=== PATIENT | female | born 2000 | race African-American/Black ===

== ENCOUNTER 2019-03-25 14:43 | Emergency (ER) | payer OTHER ==
[2019-03-25 15:08] VITALS: BP 126/72; PULSE 100; TEMP 98.4; BMI 32.3
--- NOTE | 2019-03-25 15:49 | PDOC ---
History of Present Illness <ChinoAamir Tinsley - Last Filed: 03/25/19 16:22> - History of Present Illness Initial Comments: 03/25/19 15:49 HPI: 18 y/o F with no pmh presenting with 4 days of sore throat and rhinorrhea that has worsened over the past 2 days to include productive cough. She also reports some mild dyspnea but it does not impair her daily routine. She denies fever, chest pain, sick contacts, abd pain, n/v, recent travel. [place] in a dorm on campus. Tried nyquil and vaporub with minimal improvement. PMHx: as noted above ROS: as noted SHx: Denies tobacco use; no alcohol use; no rec drugs Allergies: NKDA ROS: GENERAL/CONSTITUTIONAL: No fever or chills. No weakness. HEAD, EYES, EARS, NOSE AND THROAT: No change in vision. No ear pain or discharge. +sore throat. CARDIOVASCULAR: No chest pain RESPIRATORY: No cough, wheezing, or hemoptysis. GASTROINTESTINAL: No nausea, vomiting, diarrhea or constipation. GENITOURINARY: No dysuria, frequency, or change in urination. MUSCULOSKELETAL: No joint or muscle swelling or pain. No neck or back pain. SKIN: No rash NEUROLOGIC: No headache, vertigo, loss of consciousness, or change in strength/ sensation. ENDOCRINE: No increased thirst. No abnormal weight change HEMATOLOGIC/LYMPHATIC: No anemia, easy bleeding, or history of blood clots. ALLERGIC/IMMUNOLOGIC: No hives or skin allergy. PE: GENERAL: Awake, alert, and fully oriented, no acute distress HEAD: No signs of trauma, normocephalic, atraumatic EYES: EOMI, sclera anicteric, conjunctiva clear ENT: Auricles normal inspection, TMs clear, hearing grossly normal, nares patent , posterior oropharynx erythema but no exudates or lesions, nontender sinuses. Moist mucosa NECK: Normal ROM, no lymphadenopathy LUNGS: No increased work of breathing, symmetrical chest rise, clear to auscultation bilaterally, no wheezes, crackles or rhonchi HEART: tachycardic, and regular rhythm, normal S1 and S2, no murmurs, peripheral pulses 2+ and equal bilaterally. ABDOMEN: Soft, nondistended, nontender, normoactive bowel sounds. No guarding, no rebound. No masses. No CVAT EXTREMITIES: Normal inspection, Normal range of motion, no edema. No clubbing or cyanosis. NEUROLOGICAL: Cranial nerves II through XII grossly intact. Normal speech, normal gait, no focal sensorimotor deficits SKIN: Warm, Dry, normal turgor, no rashes or lesions noted <Mendel Rivas - Last Filed: 03/25/19 17:05> - General Chief Complaint: Cold Symptoms Stated Complaint: SORE THROAT Time Seen by Provider: 03/25/19 15:01 Past History <Aamir Hugo - Last Filed: 03/25/19 16:22> - Past Medical History COPD: No - Immunization History Immunization Up to Date: Yes - Psycho Social/Smoking Cessation Hx Smoking History: Never smoked Hx Alcohol Use: No Drug/Substance Use Hx: No <Mendel Rivas - Last Filed: 03/25/19 17:05> - Past Medical History Allergies/Adverse Reactions: Allergies Allergy/AdvReac Type Severity Reaction Status Date / Time No Known Allergies Allergy Verified 03/25/19 15:01 Home Medications: Ambulatory Orders NK [No Known Home Medication] 03/25/19 *Physical Exam - Vital Signs Last Vital Signs Temp Pulse Resp BP Pulse Ox 98.4 F 100 H 15 126/72 99 03/25/19 14:53 03/25/19 14:53 03/25/19 14:53 03/25/19 14:53 03/25/19 14:53 <Aamir Hugo - Last Filed: 03/25/19 16:22> - Vital Signs Last Vital Signs Temp Pulse Resp BP Pulse Ox 98.4 F 100 H 15 126/72 99 03/25/19 14:53 03/25/19 14:53 03/25/19 14:53 03/25/19 14:53 03/25/19 14:53 <Mendel Rivas - Last Filed: 03/25/19 17:05> Medical Decision Making - Medical Decision Making 03/25/19 17:03 18 y/o F with no pmh presenting with 4 days of sore throat and rhinorrhea that has worsened over the past 2 days to include productive cough. mild tachycardia , AF. PE with erythematous posterior oropharynx without exudates -rapid strep and throat culture 03/25/19 17:03 negative strep likely viral pharyngitis will DC home with conservative management <Mendel Rivas - Last Filed: 03/25/19 17:05> Discharge - Discharge Information Problems reviewed: Yes - Admission No <Aamir Hugo - Last Filed: 03/25/19 16:22> - Discharge Information Problems reviewed: Yes <Mendel Rivas - Last Filed: 03/25/19 17:05> - Discharge Information Clinical Impression/Diagnosis: Viral upper respiratory infection Condition: Good Disposition: HOME - Patient Discharge Instructions Patient Printed Discharge Instructions: DI for Viral Upper Respiratory Infection -- Adult Additional Instructions: Rest, fluids, Tylenol or Motrin. Recheck primary physician if no improvement 4 to 5 days. Return to ER if there are further symptoms such as fever/chills, chest pain, shortness of breath, abdominal pain, nausea, vomiting, diarrhea. - Post Discharge Activity Work/Back to School Note: Back to School
--- NOTE | 2019-03-25 16:26 | PDOC ---
Documentation entered by Agnes Ferraro SCRIBE, acting as scribe for Aamir Sandoval MD. Aamir Hugo MD: This documentation has been prepared by the Ronan street Aiswarya, SCRIBE, under my direction and personally reviewed by me in its entirety. I confirm that the documentation accurately reflects all work, treatment, procedures, and medical decision making performed by me. 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 The patient states she endorses associated symptoms of non productive cough and sore throat. Patient also mentions she had the flu shot in February. The patient denies chest pain, shortness of breath, headache and dizziness. Denies fever, body aches, chills, nausea, vomit, diarrhea and constipation. Denies dysuria, frequency, urgency and hematuria. Allergies: NKDA Past surgical history: None reported Social history: None reported PCP: None reported - Physicial Exam PE: 03/25/19 16:14 GENERAL: Afebrile. Awake, alert, and fully oriented, in no acute distress HEAD: No signs of trauma EYES: PERRLA, EOMI, sclera anicteric, conjunctiva clear ENT: +Mild nasal congestion but no discharge. +Mild erythema to the posterior pharynx. No exudate mass or swelling. Good hydration. Auricles normal inspection , hearing grossly normal, NECK: Normal ROM, supple, no lymphadenopathy, JVD, or masses LUNGS: Breath sounds equal, clear to auscultation bilaterally. No wheezes, and no crackles HEART: Regular rate and rhythm, normal S1 and S2, no murmurs, rubs or gallops NEUROLOGICAL: Cranial nerves II through XII grossly intact. Normal speech, normal gait SKIN: Warm, Dry, normal turgor, no rashes or lesions noted. - Medical Decision Making 03/25/19 16:04 Assessment: Viral URI. No suggestion of influenza. Rule out strep. Plan: Throat swab. Antibiotics if positive, symptomatic treatment for viral URI if negative. 03/25/19 16:25 Throat swab is negative. Rest, fluids, Tylenol or Motrin, follow-up if further symptoms develop. Fully ambulatory and in no significant pain or other distress at discharge
== END 2019-03-25 17:00 | disposition home or self-care (01) ==
LOC: FER 14:43
DX: J06.9 Acute upper respiratory infection, unspecified (principal); B97.89 Other viral agents as the cause of diseases classified elsewhere
CPT/HCPCS: 87070; 87077; 87880; 99282-25